=== PATIENT | male | born 2000 | race African-American/Black ===

== ENCOUNTER 2021-10-18 17:34 | Emergency (ER) | payer SELFPAY ==
[2021-10-18 17:47] VITALS: BP 143/82; PULSE 79; RESP 20; TEMP 36.5; O2SAT 98
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
[2021-10-18] MEDS: Acetaminophen 500 MG TAB 1000 MG PO (18:08)
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
== END 2021-10-18 19:36 | disposition home or self-care (01) ==
PROVIDERS: Emergency Provider Emergency Medicine
DX: S40.011A Contusion of right shoulder, initial encounter (principal); V18.4XXA Pedal cycle driver injured in noncollision transport accident in traffic accident, initial encounter; S00.81XA Abrasion of other part of head, initial encounter
CPT/HCPCS: 99284; 73000; 73030; 99282